=== PATIENT | male | born 1975 | race American Indian/Alaskan Native ===

== ENCOUNTER 2019-01-14 14:20 | Emergency (ER) | payer MEDICAID ==
--- NOTE | 2019-01-14 14:37 | Emergency Department Report ---
Blank Doc - Documentation Documentation: This is a 43-year-old male that presents with hearing voice. Patient stated has been out of his medications. Denies any SI/HI. This initial assessment/diagnostic orders/clinical plan/treatment(s) is/are subject to change based on patient's health status, clinical progression and re- assessment by fellow clinical providers in the ED. Further treatment and workup at subsequent clinical providers discretion. Patient/guardians urged not to elope from the ED as their condition may be serious if not clinically assessed and managed. Initial orders include: 1- Patient sent to MAIN ED for further evaluation and treatment 2- automatic fabric cutter was notified to have patient be brought back [facility]. 3- RN was notified to keep patient as close range and observation until room available 4- Labs 5- UA
[2019-01-14 15:01] LABS: Basophils # (Auto) 0.1 K/mm3 (0.0-0.1); Basophils % (Auto) 0.9 % (0.0-1.8); Eosinophils # (Auto) 0.1 K/mm3 (0.0-0.4); Eosinophils % (Auto) 1.4 % (0.0-4.3); Hematocrit 39.1 % (35.5-45.6); Hemoglobin 13.2 gm/dl (11.8-15.2); Lymphocytes # (Auto) 2.2 K/mm3 (1.2-5.4); Lymphocytes % (Auto) 28.6 % (13.4-35.0); Mean Corpuscular HGB Conc 34 % (32-34); Mean Corpuscular Volume 89 fl (84-94); Monocytes # (Auto) 0.6 K/mm3 (0.0-0.8); Monocytes % (Auto) 8.1 % (0.0-7.3); Platelet Count 349 K/mm3 (140-440); Red Cell Distribution Width 13.9 % (13.2-15.2)
[2019-01-14 15:19] LABS: BUN/Creatinine Ratio 14; Blood Urea Nitrogen 15 mg/dL (9-20); Calcium 9.1 mg/dL (8.4-10.2); Hemolysis Index 12
[2019-01-14 16:05] VITALS: BP 142/95
--- NOTE | 2019-01-14 16:24 | Emergency Department Report ---
HPI - General Chief Complaint: Psych Time Seen by Provider: 01/14/19 14:35 - HPI HPI: -[place] male presents to the emergency department for a mental health evaluation. The patient has a history of schizophrenia and admits that he has not been on any medication for the past few months. For the past month the patient has been dealing with auditory hallucinations. These voices are telling him to harm himself, that his mother is going to , that he is going to lose his job. He denies any desire to harm himself or any suicidal ideations. He denies any homicidal ideations. He previously was on Seroquel and Risperdal. He has a past medical history of hypertension. He is a tobacco smoker and admits to some marijuana use. ED Past Medical Hx - Past Medical History Previous Medical History?: Yes Hx Hypertension: Yes Hx Psychiatric Treatment: Yes - Surgical History Past Surgical History?: No - Social History Smoking Status: Current Every Day Smoker Substance Use Type: Alcohol, Marijuana - Medications Home Medications: Home Medications Medication Instructions Recorded Confirmed Last Taken Type RisperDAL 2 mg PO BID #20 01/14/19 Unknown Rx SEROquel 400 mg PO QHS #10 01/14/19 Unknown Rx ED Review of Systems ROS: Stated complaint: MH EVAL Other details as noted in HPI Comment: All other systems reviewed and negative Constitutional: denies: chills, fever Eyes: denies: eye pain, vision change ENT: denies: ear pain, throat pain Respiratory: denies: cough, shortness of breath Cardiovascular: denies: chest pain, palpitations Gastrointestinal: denies: nausea, vomiting Genitourinary: denies: dysuria, frequency Musculoskeletal: denies: back pain, arthralgia Neurological: denies: headache, weakness Psychiatric: auditory hallucinations. denies: homicidal thoughts Physical Exam - Physical Exam Vital Signs: Vital Signs 01/14/19 01/14/19 14:36 16:03 Temperature 97.3 F L 98.0 F Pulse Rate 71 70 Respiratory 20 20 Rate Blood Pressure 169/108 Blood Pressure 142/95 [Left] O2 Sat by Pulse 100 100 Oximetry Physical Exam: GENERAL: The patient is well-developed well-nourished. HEENT: Normocephalic. Atraumatic. Patient has moist mucous membranes. EYES: Extraocular motions are intact. NECK: Supple. Trachea is midline. CHEST/LUNGS: Clear to auscultation. There is no respiratory distress noted. HEART/CARDIOVASCULAR: Regular. There is no tachycardia. There is no obvious murmur. ABDOMEN: Abdomen is soft, nontender. Patient has normal bowel sounds. There is no abdominal distention. SKIN: Skin is warm and dry. NEURO: The patient is awake, alert, and oriented. The patient is cooperative. The patient has no focal neurologic deficits. The patient has normal speech. MUSCULOSKELETAL: There is no tenderness or deformity. There is no limitation range of motion. There is no evidence of acute injury. ED Course Vital Signs 01/14/19 01/14/19 14:36 16:03 Temperature 97.3 F L 98.0 F Pulse Rate 71 70 Respiratory 20 20 Rate Blood Pressure 169/108 Blood Pressure 142/95 [Left] O2 Sat by Pulse 100 100 Oximetry ED Medical Decision Making - Lab Data Result diagrams: 01/14/19 14:46 01/14/19 14:46 - Medical Decision Making This patient presents to the emergency department with admission of medication noncompliance for his schizophrenia and he also has been having some auditory hallucinations. While the hallucinations do tell him to harm himself, the patient says that he has no intent to act upon this and says that he has no suicidal ideations or desire to harm himself. He also denies any homicidal ideations. During his examination the patient has been awake, alert, calm and cooperative and appropriate. He was seen by the psychiatric government relations manager, Didi, who agrees that the patient does not appear to be a danger to himself or others and does not appear to meet criteria to be made a 1013 at this time. He will be given multiple outpatient referrals for psychiatric help. I am starting him on a ten-day course of his psychiatric medications, Seroquel and Risperdal. Metabolic side effects were discussed with the patient and he understands and agrees to the plan. I am aware of the patient's urine drug screen positive for both marijuana and cocaine and the patient understands that he should avoid any further illicit drug use. He will return to the ER with any worsening of his symptoms, thoughts of harming himself or others, or with any acute distress. - Differential Diagnosis schizophrenia, bipolar disorder, schizoaffective, substance abuse Critical Care Time: No Critical care attestation.: If time is entered above; I have spent that time in minutes in the direct care of this critically ill patient, excluding procedure time. ED Disposition Clinical Impression: Noncompliance with medication regimen, Auditory hallucinations Schizophrenia Qualifiers: Schizophrenia type: unspecified Qualified Code(s): F20.9 - Schizophrenia, unspecified Disposition: DC-01 TO HOME OR SELFCARE Is pt being admited?: No Condition: Stable Instructions: Schizophrenia (ED) Additional Instructions: Please follow up with the [facility] or any of the other outpatient referrals that she will given by the psychiatric assessment team. Start taking the psychiatric medications prescribed/refilled. Return to the emergency Department with any worsening of your symptoms, thoughts of harming yourself or others, or with any acute distress. Prescriptions: SEROquel 400 mg PO QHS #10 RisperDAL 2 mg PO BID #20 Referrals: [facility] [Outside] - [facility] [Outside] - [facility] Time of Disposition: 16:53
[2019-01-14 16:56] LABS: Bilirubin,Urine NEG (Negative); Blood,Urine NEG (Negative); Color,Urine Yellow (Yellow); Protein,Urine <15 mg/dL mg/dL (Negative); Urobilinogen,Urine < 2.0 mg/dL (<2.0); WBC,Urine < 1.0 /HPF (0.0-6.0)
[2019-01-14 17:03] LABS: Amphetamine Screen,Urine PRESUMPTIVE NEGATIVE; Benzodiazepines Screen,Urine PRESUMPTIVE NEGATIVE; Methadone Screen,Urine PRESUMPTIVE NEGATIVE; Opiate Screen,Urine PRESUMPTIVE NEGATIVE
[2019-01-14 17:34] LABS: Cannabinoid Screen,Urine PRESUMPTIVE POSITIVE; Cocaine Screen,Urine PRESUMPTIVE POSITIVE
== END 2019-01-14 17:47 | disposition home or self-care (01) ==
LOC: ED 14:20
DX: F20.9 Schizophrenia, unspecified (principal); Z91.14 Patient's other noncompliance with medication regimen; I10 Essential (primary) hypertension; F17.200 Nicotine dependence, unspecified, uncomplicated; F12.10 Cannabis abuse, uncomplicated
CPT/HCPCS: 36415; 80048; 80307; 81001; 85025; 99284; G0480; 80320

== ENCOUNTER 2020-09-03 15:13 | Inpatient (IN) | payer MEDICAID ==
[2020-09-03 16:02] LABS: Hematocrit 26.8 % (35.5-45.6); Hemoglobin 9.2 gm/dl (11.8-15.2); Mean Corpuscular HGB Conc 34 % (32-34); Mean Corpuscular Volume 88 fl (84-94); Platelet Count 993 K/mm3 (140-440); Red Blood Count 3.06 M/mm3 (3.65-5.03); Red Cell Distribution Width 13.7 % (13.2-15.2)
--- NOTE | 2020-09-03 16:13 | XRay Report ---
CHEST 2 VIEWS INDICATION / CLINICAL INFORMATION: Chest Pain. COMPARISON: None available. FINDINGS: SUPPORT DEVICES: None. HEART / MEDIASTINUM: No significant abnormality. LUNGS / PLEURA: No significant pulmonary or pleural abnormality. No pneumothorax. ADDITIONAL FINDINGS: No significant additional findings. IMPRESSION: 1. No acute findings. Signer Name: Lee Pepper MD Signed: 09/03/2020 4:09 PM Workstation Name: [id number]
[2020-09-03 16:16] LABS: BUN/Creatinine Ratio 9; Blood Urea Nitrogen 9 mg/dL (9-20); Calcium 9.5 mg/dL (8.4-10.2); Hemolysis Index 1
[2020-09-03 17:32] LABS: Band Neutrophils # (Manual) 0.5 K/mm3; Basophils % (Manual) 0 % (0.0-1.8); Eosinophils % (Manual) 0 % (0.0-4.3); Total Cells Counted 100
[2020-09-03 17:34] LABS: Platelet Estimate Consistent w Auto; RBC Morphology Normal
--- NOTE | 2020-09-03 19:16 | Emergency Department Report ---
ED Chest Pain HPI - General Chief Complaint: Dyspnea/Respdistress Stated Complaint: CHEST PAIN/DIFFICULTY BREATHING PUI?: No Time Seen by Provider: 09/03/20 18:45 Source: patient Mode of arrival: Ambulatory Limitations: No Limitations - History of Present Illness Initial Comments: Chief complaint: Chest pain, muscle spasms HPI: This is a 45-year-old male with history of hypertension, tobacco dependence who presents with 1 week of left-sided chest pain. He was evaluated per EMS 1 week ago. He was diagnosed with likely chest wall muscle spasms. Since that time he has had severe shortness of breath especially with exertion. He has had pain with inhalation and cough. Sharp left-sided pain without radiation. Cough is productive with whitish sputum. He denies fever. Denies chills. 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 Pain is moderately severe. Sharp in nature. Pain is intermittent. MD Complaint: chest pain -: Gradual, week(s) (1) Onset: during rest Pain Location: left chest Pain Radiation: none Severity: moderate Severity scale (0 -10): 8 Quality: sharp Consistency: intermittent Improves With: rest Worsens With: inspiration, other (Cough) Other Symptoms: cough Treatments Prior to Arrival: none - Related Data Previous Rx's Medication Instructions Recorded Last Taken Type RisperDAL 2 mg PO BID #20 01/14/19 Unknown Rx SEROquel 400 mg PO QHS #10 01/14/19 Unknown Rx Allergies Allergy/AdvReac Type Severity Reaction Status Date / Time No Known Allergies Allergy Unverified 01/14/19 14:28 Heart Score - HEART Score History: Slightly suspicious EKG: Normal Age: 45-65 Risk factors: 1-2 risk factors Troponin: < normal limit HEART Score: 2 ED Review of Systems ROS: Stated complaint: CHEST PAIN/DIFFICULTY BREATHING Other details as noted in HPI Comment: All other systems reviewed and negative Constitutional: denies: chills, fever, malaise Respiratory: cough, shortness of breath. denies: wheezing Cardiovascular: chest pain Gastrointestinal: denies: abdominal pain, nausea, vomiting ED Past Medical Hx - Past Medical History Previous Medical History?: Yes Hx Hypertension: Yes Hx Psychiatric Treatment: Yes - Social History Smoking Status: Current Every Day Smoker - Medications Home Medications: Home Medications Medication Instructions Recorded Confirmed Last Taken Type RisperDAL 2 mg PO BID #20 01/14/19 Unknown Rx SEROquel 400 mg PO QHS #10 01/14/19 Unknown Rx ED Physical Exam - General Limitations: No Limitations General appearance: alert, in no apparent distress - Head Head exam: Present: atraumatic, normocephalic - Eye Eye exam: Present: normal appearance - ENT ENT exam: Present: mucous membranes moist - Neck Neck exam: Present: normal inspection, full ROM - Respiratory Respiratory exam: Present: normal lung sounds bilaterally. Absent: respiratory distress, wheezes, rales, rhonchi - Cardiovascular Cardiovascular Exam: Present: normal rhythm, tachycardia, normal heart sounds. Absent: systolic murmur, diastolic murmur, rubs, gallop - GI/Abdominal GI/Abdominal exam: Present: soft, normal bowel sounds. Absent: distended, tenderness, guarding, rebound - Rectal Rectal exam: Present: deferred - Extremities Exam Extremities exam: Present: normal inspection - Neurological Exam Neurological exam: Present: alert, oriented X3 - Psychiatric Psychiatric exam: Present: normal affect, normal mood - Skin Skin exam: Present: warm, dry, intact, normal color. Absent: rash ED Course Vital Signs 09/03/20 15:20 Temperature 98.0 F Pulse Rate 114 H Respiratory 20 Rate Blood Pressure 115/71 O2 Sat by Pulse 99 Oximetry ED Medical Decision Making - Lab Data Result diagrams: 09/03/20 15:40 09/03/20 15:40 - EKG Data -: EKG Interpreted by [place] EKG shows normal: sinus rhythm, axis, intervals, QRS complexes, ST-T waves Rate: normal - EKG Data Interpretation: normal EKG - Radiology Data Radiology results: report reviewed Chest 2 views: No acute findings according to radiology impression CT angio chest INDICATION / CLINICAL INFORMATION: Pleuritic chest pain, tachycardia. TECHNIQUE: Axial CT images were obtained through the chest after injection of IV contrast. 3 plane MIP and/or 3D reconstructions were produced. All CT scans at this location are performed using CT dose reduction for ALARA by means of automated exposure control. COMPARISON: X-ray dated same day FINDINGS: PULMONARY ARTERIES: No pulmonary emboli. HEART: No significant abnormality. MEDIASTINUM / ADDY: No significant abnormality. LUNGS: There is a 7.2 x 7.8 x 12.8 cm left lower posterior loculated effusion. Small quantity of pleural fluid which is not loculated is present as well. The loculated effusion is resulting in compressive atelectasis in left lower lobe. No pneumothorax. ADDITIONAL FINDINGS: None. UPPER ABDOMEN: No acute findings. SKELETAL STRUCTURES: No significant osseous abnormality. IMPRESSION: 1. No CT evidence for pulmonary embolism. 2. Moderate to large left loculated effusion of uncertain etiology resulting in compressive atelectasis. - Medical Decision Making Moderate size pleural effusion, left sided seen on CT angiogram. CT scan obtained to rule out pulmonary embolism and for further diagnosis. Pleural effusion likely infectious in etiology considering leukocytosis and productive cough. Broad-spectrum antibiotics initiated in emergency department. Patient is admitted to the hospital service in stable condition. Patient will benefit from diagnostic and therapeutic thoracentesis. Critical care attestation.: If time is entered above; I have spent that time in minutes in the direct care of this critically ill patient, excluding procedure time. ED Disposition Clinical Impression: Pleural effusion Disposition: DC09 OP ADMIT IP TO THIS HOSP Is pt being admited?: Yes Does the pt Need Aspirin: No Condition: Stable
--- NOTE | 2020-09-03 20:01 | Cat Scan Report ---
. CT angio chest INDICATION / CLINICAL INFORMATION: Pleuritic chest pain, tachycardia. TECHNIQUE: Axial CT images were obtained through the chest after injection of IV contrast. 3 plane MIP and/or 3D reconstructions were produced. All CT scans at this location are performed using CT dose reduction f or ALARA by means of automated exposure control. COMPARISON: X-ray dated same day FINDINGS: PULMONARY ARTERIES: No pulmonary emboli. HEART: No significant abnormality. MEDIASTINUM / ADDY: No significant abnormality. LUNGS: There is a 7.2 x 7.8 x 12.8 cm left lower posterior loculated effusion. Small quantity of pleu ral fluid which is not loculated is present as well. The loculated effusion is resulting in compressi ve atelectasis in left lower lobe. No pneumothorax. ADDITIONAL FINDINGS: None. UPPER ABDOMEN: No acute findings. SKELETAL STRUCTURES: No significant osseous abnormality. IMPRESSION: 1. No CT evidence for pulmonary embolism. 2. Moderate to large left loculated effusion of uncertain etiology resulting in compressive atelectas is. Signer Name: Carlos Mendez MD Signed: 09/03/2020 7:57 PM Workstation Name: [id number]
[2020-09-03] MEDS ORDERED: VANCOMYCIN PHARMACY TO DOSE IV SCH (22:00)
[2020-09-03] MEDS ORDERED: VANCOMYCIN 1,500 MG in SODIUM CHLORIDE 0.9% 500 ML 500 ML IV ONE (22:00)
[2020-09-03] MEDS ORDERED: MAGNESIUM HYDROXIDE (MOM) ORAL LIQD UDC PO PRN (22:04)
[2020-09-03] MEDS ORDERED: ACETAMINOPHEN 325 MG TAB PO PRN (22:04)
[2020-09-03] MEDS ORDERED: ONDANSETRON 4 MG/2 ML INJ IV PRN (22:04)
--- NOTE | 2020-09-03 22:12 | History and Physical Report ---
History of Present Illness Date of examination: 09/03/20 Date of admission: 09/03/20 21:24 Chief complaint: Chest Pain. Cough Shortness of breath History of present illness: 45-year-old -[place] male with known history of hypertension and history of tobacco abuse presenting to the emergency room today complaining of left- sided chest pain. Chest pain has been ongoing for about 1 week. States he was diagnosed with chest wall muscle spasm about a week ago which has not improved. He has had shortness of breath which is worse on exertion. He has also had some cough which is productive of some whitish sputum. Chest pain has been intermittent, occasionally pleuritic and sharp. Patient denies any fever or chills, no nausea or vomiting, no headache or dizziness, no hematuria or dysuria. He denies any sick contacts and no recent travel, denies any contact with anyone with COVID-19. 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 Indicates he has been losing appetite and has lost some weight. He denies any night sweats. Work-up in the emergency room today including CT scan of the chest reveals: Moderate to large left loculated effusion of uncertain etiology resulting in compressive atelectasis. Labs reveals leukocytosis of about 24. Patient has been admitted for pleural effusion with an underlying possible infectious process. He has also been started on empiric IV antibiotics. Past History Past Medical History: hypertension Past Surgical History: No surgical history Social history: smoking (Current daily smoker) Family history: no significant family history Medications and Allergies Allergies Allergy/AdvReac Type Severity Reaction Status Date / Time No Known Allergies Allergy Unverified 01/14/19 14:28 Home Medications Medication Instructions Recorded Confirmed Last Taken Type RisperDAL 2 mg PO BID #20 01/14/19 09/03/20 Unknown Rx SEROquel 400 mg PO QHS #10 01/14/19 09/03/20 Unknown Rx Active Meds: Active Medications Acetaminophen (Tylenol) 650 mg PO Q4H PRN PRN Reason: Pain MILD(1-3)/Fever >100.5/RODARTE Vancomycin HCl 1,500 mg/ (Sodium Chloride) 530 mls @ 333 mls/hr IV ONCE ONE; Protocol Stop: 09/03/20 23:35 Cefepime HCl (Cefepime/Ns 2 Gm/100 Ml) 2 gm in 100 mls @ 200 mls/hr IV Q8HR [facility]; Protocol Vancomycin HCl (Vancomycin/Ns 1 Gm/250 Ml) 1 gm in 250 mls @ 250 mls/hr IV Q12HR CANDI Magnesium Hydroxide (Milk Of Magnesia) 30 ml PO Q4H PRN PRN Reason: Constipation Morphine Sulfate (Morphine) 2 mg IV Q4H PRN PRN Reason: Pain, Moderate (4-6) Ondansetron HCl (Zofran) 4 mg IV Q8H PRN PRN Reason: Nausea And Vomiting Sodium Chloride (Sodium Chloride Flush Syringe 10 Ml) 10 ml IV BID CANDI Sodium Chloride (Sodium Chloride Flush Syringe 10 Ml) 10 ml IV PRN PRN PRN Reason: LINE FLUSH Review of Systems Constitutional: fever, chills, weakness Ears, nose, mouth and throat: no nasal congestion, no sore throat Cardiovascular: chest pain, no palpitations Respiratory: cough, shortness of breath, dyspnea on exertion Gastrointestinal: no abdominal pain, no nausea, no vomiting, no diarrhea Genitourinary Male: no dysuria, no hematuria, no nocturia Musculoskeletal: no neck pain, no low back pain Integumentary: no rash, no pruritis Neurological: no headaches, no confusion Psychiatric: no anxiety, no depression Exam - Constitutional Vitals: Temp Pulse Resp BP Pulse Ox 98.0 F 114 H 20 115/71 99 09/03/20 15:20 09/03/20 15:20 09/03/20 15:20 09/03/20 15:20 09/03/20 15:20 General appearance: Present: no acute distress, well-nourished - EENT Eyes: Present: PERRL, EOM intact. Absent: scleral icterus ENT: hearing intact, clear oral mucosa, dentition normal - Neck Neck: Present: supple, normal ROM - Respiratory Respiratory effort: normal Respiratory: left: diminished - Cardiovascular Rhythm: regular Heart Sounds: Present: S1 & S2. Absent: gallop, systolic murmur, diastolic murmur, rub - Extremities Extremities: no ischemia, pulses intact, pulses symmetrical, No edema, Full ROM Peripheral Pulses: within normal limits - Abdominal General gastrointestinal: Present: soft, non-tender, non-distended, normal bowel sounds. Absent: mass - Integumentary Integumentary: Present: clear, warm, dry - Musculoskeletal Musculoskeletal: strength equal bilaterally - Psychiatric Psychiatric: appropriate mood/affect, intact judgment & insight, memory intact, cooperative - Neurologic Neurologic: CNII-XII intact, no focal deficits, moves all extremities HEART Score - HEART Score EKG: Normal Age: 45-65 Risk factors: 1-2 risk factors Troponin: Troponin T < 0.010 ng/mL (0.00-0.029) 09/03/20 18:41 Troponin: < normal limit Results - Labs CBC & Chem 7: 09/03/20 15:40 09/03/20 15:40 Labs: Abnormal lab results 09/03/20 09/03/20 Range/Units 15:40 15:40 WBC 24.7 H (4.5-11.0) K/mm3 RBC 3.06 L (3.65-5.03) M/mm3 Hgb 9.2 L (11.8-15.2) gm/dl Hct 26.8 L (35.5-45.6) % Plt Count 993 H (140-440) K/mm3 Seg Neuts % (Manual) 83.0 H (40.0-70.0) % Lymphocytes % (Manual) 6.0 L (13.4-35.0) % Monocytes % (Manual) 9.0 H (0.0-7.3) % Seg Neutrophils # Man 20.5 H (1.8-7.7) K/mm3 Monocytes # (Manual) 2.2 H (0.0-0.8) K/mm3 Sodium 130 L (137-145) mmol/L Chloride 96.1 L (98-107) mmol/L Carbon Dioxide 18 L (22-30) mmol/L Glucose 108 H (75-100) mg/dL Assessment and Plan - Patient Problems (1) Pleural effusion Current Visit: Yes Status: Acute Plan to address problem: Etiology is unclear. We will place consult to pulmonology and interventional radiology for evaluation and possible thoracentesis. Is unclear whether patient has an underlying infectious process versus mal ignancy. He has been started on empiric IV antibiotics. (2) DVT prophylaxis Current Visit: Yes Status: Acute Plan to address problem: Patient placed on sequential compression device. We will hold anticoagulation in view of possible surgical intervention. (3) Full code status Current Visit: Yes Status: Acute
[2020-09-03] MEDS ORDERED: CEFEPIME/NS 2 GM/100 ML 2 GM/100 ML BAG IV ONE (22:25)
[2020-09-03] MEDS: CEFEPIME/NS 2 GM/100 ML 2 GM/100 ML BAG IV SCH (22:27)
[2020-09-03] MEDS ORDERED: oxyCODONE /ACETAMINOPHEN 5-325MG TAB PO ONE (22:43)
[2020-09-03] MEDS ORDERED: oxyCODONE /ACETAMINOPHEN 5-325MG TAB ONE (22:44)
[2020-09-04] MEDS: CEFEPIME/NS 2 GM/100 ML 2 GM/100 ML BAG IV SCH ×3 (06:00→21:11)
[2020-09-04 06:31] LABS: Basophils # (Auto) 0.1 K/mm3 (0.0-0.1); Basophils % (Auto) 0.7 % (0.0-1.8); Eosinophils # (Auto) 0.1 K/mm3 (0.0-0.4); Eosinophils % (Auto) 0.7 % (0.0-4.3); Hematocrit 27.3 % (35.5-45.6); Hemoglobin 8.8 gm/dl (11.8-15.2); Lymphocytes # (Auto) 1.4 K/mm3 (1.2-5.4); Lymphocytes % (Auto) 7.4 % (13.4-35.0); Mean Corpuscular HGB Conc 32 % (32-34); Mean Corpuscular Volume 86 fl (84-94); Monocytes # (Auto) 1.6 K/mm3 (0.0-0.8); Monocytes % (Auto) 8.5 % (0.0-7.3); Platelet Count 982 K/mm3 (140-440); Red Blood Count 3.16 M/mm3 (3.65-5.03); Red Cell Distribution Width 13.8 % (13.2-15.2)
[2020-09-04 06:37] LABS: INR 1.27 (0.87-1.13)
[2020-09-04 06:50] LABS: BUN/Creatinine Ratio 11; Blood Urea Nitrogen 10 mg/dL (9-20); Calcium 9.5 mg/dL (8.4-10.2); Hemolysis Index 0
[2020-09-04] MEDS: VANCOMYCIN/NS 1 GM/250 ML 1 GM/250 ML BAG IV SCH ×2 (09:16→21:11)
--- NOTE | 2020-09-04 11:43 | Consultation ---
History of Present Illness Consult date: 09/04/20 Reason for consult: dyspnea, cough, chest pain History of present illness: History of present illness: 45-year-old -[place] male with known history of hypertension and history of tobacco abuse presenting to the emergency room yesterday complaining of left- sided chest pain. Chest pain has been ongoing for about 1 week. States he was diagnosed with chest wall muscle spasm about a week ago which has not improved. He has had shortness of breath which is worse on exertion. He has also had some cough which is productive of some whitish sputum. Chest pain has been intermittent, occasionally pleuritic and sharp. Patient denies any fever or chills, no nausea or vomiting, no headache or dizziness, no hematuria or dysuria. He denies any sick contacts and no recent travel, denies any contact with anyone with COVID-19. 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 Indicates he has been losing appetite and has lost some weight. He denies any night sweats. Work-up in the emergency room today including CT scan of the chest reveals: Moderate to large left loculated effusion of uncertain etiology resulting in compressive atelectasis. Labs reveals leukocytosis of about 24. Past History Past Medical History: hypertension Past Surgical History: No surgical history Social history: smoking (Current daily smoker) Family history: no significant family history Medications and Allergies Allergies Allergy/AdvReac Type Severity Reaction Status Date / Time No Known Allergies Allergy Unverified 01/14/19 14:28 Home Medications Medication Instructions Recorded Confirmed Last Taken Type RisperDAL 2 mg PO BID #20 01/14/19 09/03/20 Unknown Rx SEROquel 400 mg PO QHS #10 01/14/19 09/03/20 Unknown Rx Active Meds: Active Medications Acetaminophen (Tylenol) 650 mg PO Q4H PRN PRN Reason: Pain MILD(1-3)/Fever >100.5/RODARTE Cefepime HCl (Cefepime/Ns 2 Gm/100 Ml) 2 gm in 100 mls @ 200 mls/hr IV Q8HR CANDI; Protocol Last Admin: 09/04/20 06:00 Dose: 200 mls/hr Documented by: Vancomycin HCl (Vancomycin/Ns 1 Gm/250 Ml) 1 gm in 250 mls @ 250 mls/hr IV Q12HR CANDI Last Admin: 09/04/20 09:16 Dose: 250 mls/hr Documented by: Magnesium Hydroxide (Milk Of Magnesia) 30 ml PO Q4H PRN PRN Reason: Constipation Morphine Sulfate (Morphine) 2 mg IV Q4H PRN PRN Reason: Pain, Moderate (4-6) Ondansetron HCl (Zofran) 4 mg IV Q8H PRN PRN Reason: Nausea And Vomiting Sodium Chloride (Sodium Chloride Flush Syringe 10 Ml) 10 ml IV BID [facility] Last Admin: 09/04/20 09:16 Dose: 10 ml Documented by: Sodium Chloride (Sodium Chloride Flush Syringe 10 Ml) 10 ml IV PRN PRN PRN Reason: LINE FLUSH Review of Systems All systems: negative Constitutional: weight loss, anorexia Cardiovascular: chest pain Respiratory: cough, cough with sputum, shortness of breath, dyspnea on exertion, pain Physical Examination Vital signs: Vital Signs Temp Pulse Resp BP Pulse Ox 98.0 F 114 H 20 115/71 99 09/03/20 15:20 09/03/20 15:20 09/03/20 15:20 09/03/20 15:20 09/03/20 15:20 General appearance: no acute distress Eyes: non-icteric ENT: oropharynx moist, other (Dentition extremely poor) Neck: supple, no JVD Effort: normal Ascultation: Bilateral: clear Cardiovascular: regular rate and rhythm Gastrointestinal: normoactive bowel sounds, soft, non-tender Integumentary: normal Extremities: no cyanosis, no edema, pink and warm Musculoskeletal: no deformities Gait: other (Not examined) normal mental status, non-focal exam mood appropriate Results - Laboratory Findings CBC and BMP: 09/04/20 05:44 09/04/20 05:44 PT/INR, D-dimer PT 16.1 Sec. (12.2-14.9) H 09/04/20 05:44 INR 1.27 (0.87-1.13) H 09/04/20 05:44 Abnormal lab findings: Abnormal Labs 09/03/20 09/03/20 09/04/20 15:40 15:40 05:44 WBC 24.7 H 18.5 H RBC 3.06 L 3.16 L Hgb 9.2 L 8.8 L Hct 26.8 L 27.3 L Plt Count 993 H 982 H Lymph % (Auto) 7.4 L [place] % (Auto) 8.5 H [place] # (Auto) 1.6 H Seg Neutrophils % 82.7 H Seg Neuts % (Manual) 83.0 H Lymphocytes % (Manual) 6.0 L Monocytes % (Manual) 9.0 H Seg Neutrophils # 15.3 H Seg Neutrophils # Man 20.5 H Monocytes # (Manual) 2.2 H PT INR Sodium 130 L Chloride 96.1 L Carbon Dioxide 18 L Glucose 108 H 09/04/20 09/04/20 05:44 05:44 WBC RBC Hgb Hct Plt Count Lymph % (Auto) [place] % (Auto) [place] # (Auto) Seg Neutrophils % Seg Neuts % (Manual) Lymphocytes % (Manual) Monocytes % (Manual) Seg Neutrophils # Seg Neutrophils # Man Monocytes # (Manual) PT 16.1 H INR 1.27 H Sodium 136 L Chloride Carbon Dioxide Glucose 104 H - Diagnostic Findings CT scan - chest: image reviewed (Moderate size thick-walled loculated left pleural effusion medially) Assessment and Plan Impression: Moderate size thick-walled loculated left pleural effusion most likely infectious etiology. Possible aspiration Suspect pneumonia Weight loss, chest pain and cough secondary to above Recommendation: Continue with antibiotic therapy. Ultrasound guided thoracentesis tomorrow Given the thick-walled loculated effusion, patient may require decortication
[2020-09-04] MEDS: MORPHINE 2 MG/1 ML INJ IV PRN ×2 (13:24→21:08)
--- NOTE | 2020-09-04 17:46 | Progress Note ---
Assessment and Plan -- Pleural effusion Etiology is unclear. consulted to pulmonology and interventional radiology for evaluation and possible thoracentesis - planned for Saturday Is unclear whether patient has an underlying infectious process versus malignancy. He has been started on empiric IV antibiotics. --SIRS, cont abx for now, follow cx --Severe PCM, BMI only 15.8 Nutritional supplement, consult dietary --History of schizophrenia, continue home meds --Tobacco abuse, counseling done -- DVT prophylaxis Patient placed on sequential compression device. We will hold anticoagulation in view of possible surgical intervention. -- Full code status Brief History: 45 y/o male c/o left-sided intermittent, occasionally pleuritic and sharp chest pain ongoing for about 1 week. He has had shortness of breath which is worse on exertion. He has also had some cough which is productive of some whitish sputum. Work-up in the emergency room including CT scan of the chest reveals: Moderate to large left loculated effusion of uncertain etiology resulting in compressive atelectasis. Labs reveals leukocytosis of about 24. Patient has been admitted for pleural effusion with an underlying possible infectious process. He has a lso been started on empiric IV antibiotics. 09/04; planned for thoracentesis tomorrow, cont iv abx Subjective Date of service: 09/04/20 Interval history: Patient seen and examined. Medical records and medication list reviewed. No acute event overnight noted by the RN. Patient continued to have pleuritic chest pain but denies any difficulty breathing. Patient is tolerating diet. Discussed plan of care at bedside with patient. Objective - Exam Narrative Exam: GENERAL: Malnourished -British male lying on bed appeared to be in no discomfort. HEENT: Normocephalic. Atraumatic. No conjunctival congestion or icterus. Patient has moist mucous membranes. NECK: Supple. Trachea midline. CHEST/LUNGS: Diminished breath sound auscultated bilaterally, breathing nonlabored. HEART/CARDIOVASCULAR: Regular in rate and rhythm. S1 and S2 positive. ABDOMEN: Abdomen is soft, nontender. Patient has normal bowel sounds. SKIN: There is no rash. Warm and dry. NEURO: No focal motor deficit. Follows command. MUSCULOSKELETAL: No joint effusion or tenderness. Generalized muscle wasting EXTRIMITY: No edema, no cyanosis or clubbing. PSYCH: Cooperative. - Constitutional Vitals: Vital Signs - 12hr 09/04/20 12:58 Temperature 101.6 F H Pulse Rate 101 H Respiratory 18 Rate Blood Pressure 102/65 O2 Sat by Pulse 99 Oximetry - Labs CBC & Chem 7: 09/04/20 05:44 09/05/20 09:03 Labs: Abnormal lab results 09/03/20 09/04/20 09/04/20 Range/Units 15:40 05:44 05:44 WBC 24.7 H 18.5 H (4.5-11.0) K/mm3 RBC 3.06 L 3.16 L (3.65-5.03) M/mm3 Hgb 9.2 L 8.8 L (11.8-15.2) gm/dl Hct 26.8 L 27.3 L (35.5-45.6) % Plt Count 993 H 982 H (140-440) K/mm3 Lymph % (Auto) 7.4 L (13.4-35.0) % [place] % (Auto) 8.5 H (0.0-7.3) % [place] # (Auto) 1.6 H (0.0-0.8) K/mm3 Seg Neutrophils % 82.7 H (40.0-70.0) % Seg Neuts % (Manual) 83.0 H (40.0-70.0) % Lymphocytes % (Manual) 6.0 L (13.4-35.0) % Monocytes % (Manual) 9.0 H (0.0-7.3) % Seg Neutrophils # 15.3 H (1.8-7.7) K/mm3 Seg Neutrophils # Man 20.5 H (1.8-7.7) K/mm3 Monocytes # (Manual) 2.2 H (0.0-0.8) K/mm3 PT 16.1 H (12.2-14.9) Sec. INR 1.27 H (0.87-1.13) Sodium (137-145) mmol/L Glucose (75-100) mg/dL 09/04/20 Range/Units 05:44 WBC (4.5-11.0) K/mm3 RBC (3.65-5.03) M/mm3 Hgb (11.8-15.2) gm/dl Hct (35.5-45.6) % Plt Count (140-440) K/mm3 Lymph % (Auto) (13.4-35.0) % [place] % (Auto) (0.0-7.3) % [place] # (Auto) (0.0-0.8) K/mm3 Seg Neutrophils % (40.0-70.0) % Seg Neuts % (Manual) (40.0-70.0) % Lymphocytes % (Manual) (13.4-35.0) % Monocytes % (Manual) (0.0-7.3) % Seg Neutrophils # (1.8-7.7) K/mm3 Seg Neutrophils # Man (1.8-7.7) K/mm3 Monocytes # (Manual) (0.0-0.8) K/mm3 PT (12.2-14.9) Sec. INR (0.87-1.13) Sodium 136 L (137-145) mmol/L Glucose 104 H (75-100) mg/dL HEART Score - HEART Score EKG: Normal Age: 45-65 Risk factors: 1-2 risk factors Troponin: Troponin T < 0.010 ng/mL (0.00-0.029) 09/03/20 18:41 Troponin: < normal limit
[2020-09-05] MEDS: CEFEPIME/NS 2 GM/100 ML 2 GM/100 ML BAG IV SCH ×3 (07:14→21:19)
[2020-09-05 09:44] LABS: BUN/Creatinine Ratio 7; Blood Urea Nitrogen 6 mg/dL (9-20); Calcium 9.1 mg/dL (8.4-10.2); Hemolysis Index 1
[2020-09-05] MEDS: risperiDONE 1 MG TAB PO SCH ×2 (10:00→21:19)
[2020-09-05] MEDS ORDERED: RISPERDAL 2 MG PO SCH (10:00)
[2020-09-05] MEDS: VANCOMYCIN/NS 1 GM/250 ML 1 GM/250 ML BAG IV SCH ×2 (10:00→21:19)
--- NOTE | 2020-09-05 11:39 | Procedure Note ---
Date of procedure: 09/05/20 Pre-op diagnosis: left pl fluid collection Post-op diagnosis: same Procedure: US thoracentesis Findings: complex left pleural fluid Anesthesia: local Surgeon: MILKA IVY Estimated blood loss: none Pathology: list (120cc) Specimen disposition: to lab Condition: stable Disposition: floor
--- NOTE | 2020-09-05 11:52 | Ultrasound Report ---
Ultrasound-guided thoracentesis HISTORY: Pleural effusion Left. COMPARISON: CTA chest 09/03/2020 PROCEDURE: The risks (including but not limited to bleeding, infection, and pneumothorax) and benefi ts were explained to the patient and informed consent was obtained. A time out procedure was perform ed. Ultrasound was used to evaluate the left pleural effusion and locate the optimal site for needle entr y. Once the skin was marked, the procedure site was prepped and draped in the usual sterile fashion and lidocaine was used for local anesthesia. A skin brayan was made and a 6-Telugu thoracentesis nancy ter was placed. The patient was monitored closely throughout the procedure, and a total of 500 mL of thick complex white fluid was aspirated. Samples were sent to the lab for further evaluation per e primary clinicians orders. The patient tolerated the procedure well with no complications. A post-procedure chest x-ray was imm ediately ordered. IMPRESSION: Successful thoracentesis as above with a total of 500 mL of thick complex white fluid asp irated. Signer Name: Puma Rosen Jr, MD Signed: 09/05/2020 11:48 AM Workstation Name: [id number]
--- NOTE | 2020-09-05 12:02 | Progress Note ---
Assessment and Plan 45 y/o male with left sided loculated pleural effusion 1. Follow up studies 2. If organisms seen on Gram Stain, will need chest tube 3. Will continue to follow. Suggest obtaining repeat imaging to re-evaluate the space Subjective Date of service: 09/05/20 Interval history: No acute events. Had Thoracentesis today with 500 cc's of what is described as thick white complex fluid. Not sure if this is puss or not. Studies ordered and hopefully pending. Objective Vital Signs - 12hr 09/05/20 04:33 Temperature 99.7 F H Pulse Rate 99 H Respiratory 18 Rate Blood Pressure 120/66 O2 Sat by Pulse 99 Oximetry Constitutional: no acute distress Eyes: non-icteric ENT: oropharynx moist, other (Dentition extremely poor) Neck: supple, no JVD Effort: normal Ascultation: Bilateral: clear Cardiovascular: regular rate and rhythm Gastrointestinal: normoactive bowel sounds, soft, non-tender Integumentary: normal Extremities: no cyanosis, no edema, pink and warm Neurologic: normal mental status, non-focal exam Psychiatric: mood appropriate CBC and BMP: 09/04/20 05:44 09/05/20 09:03 ABG, PT/INR, D-dimer: PT/INR, D-dimer PT 16.1 Sec. (12.2-14.9) H 09/04/20 05:44 INR 1.27 (0.87-1.13) H 09/04/20 05:44 Abnormal lab findings: Abnormal Labs 09/03/20 09/03/20 09/04/20 15:40 15:40 05:44 WBC 24.7 H 18.5 H RBC 3.06 L 3.16 L Hgb 9.2 L 8.8 L Hct 26.8 L 27.3 L Plt Count 993 H 982 H Lymph % (Auto) 7.4 L [place] % (Auto) 8.5 H [place] # (Auto) 1.6 H Seg Neutrophils % 82.7 H Seg Neuts % (Manual) 83.0 H Lymphocytes % (Manual) 6.0 L Monocytes % (Manual) 9.0 H Seg Neutrophils # 15.3 H Seg Neutrophils # Man 20.5 H Monocytes # (Manual) 2.2 H PT INR Sodium 130 L Chloride 96.1 L Carbon Dioxide 18 L BUN Glucose 108 H 09/04/20 09/04/20 09/05/20 05:44 05:44 09:03 WBC RBC Hgb Hct Plt Count Lymph % (Auto) [place] % (Auto) [place] # (Auto) Seg Neutrophils % Seg Neuts % (Manual) Lymphocytes % (Manual) Monocytes % (Manual) Seg Neutrophils # Seg Neutrophils # Man Monocytes # (Manual) PT 16.1 H INR 1.27 H Sodium 136 L 134 L Chloride Carbon Dioxide BUN 6 L Glucose 104 H 135 H
[2020-09-05] MEDS: MORPHINE 2 MG/1 ML INJ IV PRN (12:48)
--- NOTE | 2020-09-05 14:09 | XRay Report ---
CHEST 1 VIEW INDICATION: left pleural effusion, recent thora. COMPARISON: 09/03/2020. FINDINGS: Support devices: None. Heart: Within normal limits. Lungs/Pleura: Near complete evacuation of the complex loculated left pleural collection since the pre vious exam. The lungs are generally clear otherwise. No pneumothorax is visualized. Additional findings: None. IMPRESSION: No evidence for pneumothorax. Signer Name: Puma Rosen Jr, MD Signed: 09/05/2020 2:04 PM Workstation Name: [id number]
[2020-09-05 14:37] LABS: Hematocrit 23.2 % (35.5-45.6); Hemoglobin 7.7 gm/dl (11.8-15.2); Mean Corpuscular HGB Conc 33 % (32-34); Mean Corpuscular Volume 86 fl (84-94); Platelet Count 803 K/mm3 (140-440); Red Blood Count 2.68 M/mm3 (3.65-5.03); Red Cell Distribution Width 13.5 % (13.2-15.2)
--- NOTE | 2020-09-05 14:45 | Progress Note ---
Assessment and Plan -- Pleural effusion Etiology is unclear. consulted to pulmonology and interventional radiology for evaluation s/p thoracentesis - will follow result Is unclear whether patient has an underlying infectious process versus malignancy. He has been started on empiric IV antibiotics. --SIRS, cont abx for now, follow cx --Severe PCM, BMI only 15.8 Nutritional supplement, consult dietary --History of schizophrenia, continue home meds --Tobacco abuse, counseling done -- DVT prophylaxis Patient placed on sequential compression device. We will hold anticoagulation in view of possible surgical intervention. -- Full code status Brief History: 45 y/o male c/o left-sided intermittent, occasionally pleuritic and sharp chest pain ongoing for about 1 week. He has had shortness of breath which is worse on exertion. He has also had some cough which is productive of some whitish sputum. Work-up in the emergency room including CT scan of the chest reveals: Moderate to large left loculated effusion of uncertain etiology resulting in compressive atelectasis. Labs reveals leukocytosis of about 24. Patient has been admitted for pleural effusion with an underlying possible infectious process. He has also been started on empiric IV antibiotics. 09/04; planned for thoracentesis tomorrow, cont iv abx 09/05: s/p thoracentesis today, will follow result, cont iv abx Subjective Date of service: 09/05/20 Interval history: Patient seen and examined. Medical records and medication list reviewed. No acute event overnight noted by the RN. Patient continued to have pleuritic chest pain with cough and deep breathing but denies any difficulty breathing. Patient is tolerating diet. Discussed plan of care at bedside with patient. Objective - Exam Narrative Exam: GENERAL: Malnourished -[place] male lying on bed appeared to be in no discomfort. HEENT: Normocephalic. Atraumatic. No conjunctival congestion or icterus. Patient has moist mucous membranes. NECK: Supple. Trachea midline. CHEST/LUNGS: Diminished breath sound auscultated bilaterally, breathing nonlabored. HEART/CARDIOVASCULAR: Regular in rate and rhythm. S1 and S2 positive. ABDOMEN: Abdomen is soft, nontender. Patient has normal bowel sounds. SKIN: There is no rash. Warm and dry. NEURO: No focal motor deficit. Follows command. MUSCULOSKELETAL: No joint effusion or tenderness. Generalized muscle wasting EXTRIMITY: No edema, no cyanosis or clubbing. PSYCH: Cooperative. - Constitutional Vitals: Vital Signs - 12hr 09/05/20 09/05/20 04:33 11:51 Temperature 99.7 F H 97.9 F Pulse Rate 99 H 105 H Respiratory 18 20 Rate Blood Pressure 120/66 100/68 O2 Sat by Pulse 99 100 Oximetry - Labs CBC & Chem 7: 09/05/20 13:45 09/07/20 04:39 Labs: Abnormal lab results 09/05/20 09/05/20 Range/Units 09:03 13:45 WBC 20.5 H (4.5-11.0) K/mm3 RBC 2.68 L (3.65-5.03) M/mm3 Hgb 7.7 L (11.8-15.2) gm/dl Hct 23.2 L (35.5-45.6) % Plt Count 803 H (140-440) K/mm3 Sodium 134 L (137-145) mmol/L BUN 6 L (9-20) mg/dL Glucose 135 H (75-100) mg/dL HEART Score - HEART Score EKG: Normal Age: 45-65 Risk factors: 1-2 risk factors Troponin: Troponin T < 0.010 ng/mL (0.00-0.029) 09/03/20 18:41 Troponin: < normal limit
[2020-09-05] MEDS: QUEtiapine 200 MG TAB PO SCH (21:19)
[2020-09-05] MEDS ORDERED: SEROQUEL 400 MG PO SCH (22:00)
[2020-09-06] MEDS: CEFEPIME/NS 2 GM/100 ML 2 GM/100 ML BAG IV SCH ×3 (05:27→21:25)
--- NOTE | 2020-09-06 08:24 | Progress Note ---
Assessment and Plan 45 y/o male with left sided loculated pleural effusion 1. Not sure of what happened with specimen. Rads note says fluid was sent but no results in [employer]. NO gram stain done either. 2. Likely will need repeat CT to see if fluid has reaccumulated or if drained dry. Was not very visible on CXR 3. Unfortunately, I can't make any other recs without fluid analysis. Subjective Date of service: 09/06/20 Interval history: No studies done on pleural fluid despite orders being placed. Objective Vital Signs - 12hr 09/05/20 09/05/20 09/06/20 21:29 22:00 05:03 Temperature 98.4 F 97.6 F Pulse Rate 93 H 98 H Respiratory 18 18 18 Rate Blood Pressure 105/69 107/69 O2 Sat by Pulse 100 96 Oximetry Constitutional: no acute distress Eyes: non-icteric ENT: oropharynx moist, other (Dentition extremely poor) Neck: supple, no JVD Effort: normal Ascultation: Bilateral: clear Cardiovascular: regular rate and rhythm Gastrointestinal: normoactive bowel sounds, soft, non-tender Integumentary: normal Extremities: no cyanosis, no edema, pink and warm Neurologic: normal mental status, non-focal exam Psychiatric: mood appropriate CBC and BMP: 09/05/20 13:45 09/05/20 09:03 ABG, PT/INR, D-dimer: PT/INR, D-dimer PT 16.1 Sec. (12.2-14.9) H 09/04/20 05:44 INR 1.27 (0.87-1.13) H 09/04/20 05:44 Abnormal lab findings: Abnormal Labs 09/03/20 09/03/20 09/04/20 15:40 15:40 05:44 WBC 24.7 H 18.5 H RBC 3.06 L 3.16 L Hgb 9.2 L 8.8 L Hct 26.8 L 27.3 L Plt Count 993 H 982 H Lymph % (Auto) 7.4 L [place] % (Auto) 8.5 H [place] # (Auto) 1.6 H Seg Neutrophils % 82.7 H Seg Neuts % (Manual) 83.0 H Lymphocytes % (Manual) 6.0 L Monocytes % (Manual) 9.0 H Seg Neutrophils # 15.3 H Seg Neutrophils # Man 20.5 H Monocytes # (Manual) 2.2 H PT INR Sodium 130 L Chloride 96.1 L Carbon Dioxide 18 L BUN Glucose 108 H 09/04/20 09/04/20 09/05/20 05:44 05:44 09:03 WBC RBC Hgb Hct Plt Count Lymph % (Auto) [place] % (Auto) [place] # (Auto) Seg Neutrophils % Seg Neuts % (Manual) Lymphocytes % (Manual) Monocytes % (Manual) Seg Neutrophils # Seg Neutrophils # Man Monocytes # (Manual) PT 16.1 H INR 1.27 H Sodium 136 L 134 L Chloride Carbon Dioxide BUN 6 L Glucose 104 H 135 H 09/05/20 13:45 WBC 20.5 H RBC 2.68 L Hgb 7.7 L Hct 23.2 L Plt Count 803 H Lymph % (Auto) [place] % (Auto) [place] # (Auto) Seg Neutrophils % Seg Neuts % (Manual) Lymphocytes % (Manual) Monocytes % (Manual) Seg Neutrophils # Seg Neutrophils # Man Monocytes # (Manual) PT INR Sodium Chloride Carbon Dioxide BUN Glucose
[2020-09-06] MEDS: risperiDONE 1 MG TAB PO SCH ×2 (09:05→21:26)
[2020-09-06] MEDS: VANCOMYCIN/NS 1 GM/250 ML 1 GM/250 ML BAG IV SCH ×2 (09:05→21:25)
--- NOTE | 2020-09-06 17:25 | Cat Scan Report ---
CT CHEST WITHOUT CONTRAST INDICATION / CLINICAL INFORMATION: pleural effusion. TECHNIQUE: Axial CT images were obtained through the chest without contrast. All CT scans at this location are p erformed using CT dose reduction for ALARA by means of automated exposure control. COMPARISON: Prior chest radiograph dated 09/05/2020. CT angiogram chest dated 09/03/2020 FINDINGS: HEART: No significant abnormality. THORACIC AORTA: No significant abnormality. MEDIASTINUM and ADDY: No significant abnormality. LUNGS: Persistent compressive atelectasis of the left lower lobe is similar. PLEURA: Minimal Interval decrease in size of the previously noted loculated left pleural fluid collec tion now measuring 6.4 x 7.4 cm (previously 10.1 x 7.2 cm). This collection now contains small amount s of internal air. No pneumothorax. ADDITIONAL FINDINGS: None. UPPER ABDOMEN: No significant abnormality. SKELETAL SYSTEM: No significant abnormality. IMPRESSION: 1. Minimal interval decrease in size of the previously noted loculated left pleural fluid collection which may represent a loculated pleural effusion versus empyema. Drainage is recommended. 2. Otherwise there is no significant interval change since prior exam. Signer Name: Pedrito Moreland MD Signed: 09/06/2020 5:24 PM Workstation Name: [id number]
--- NOTE | 2020-09-06 17:58 | Progress Note ---
Assessment and Plan -- Pleural effusion Etiology is unclear. consulted to pulmonology and interventional radiology for evaluation s/p thoracentesis - will follow result Is unclear whether patient has an underlying infectious process versus malignancy. He has been started on empiric IV antibiotics. --SIRS, cont abx for now, follow cx --Severe PCM, BMI only 15.8 Nutritional supplement, consult dietary --History of schizophrenia, continue home meds --Tobacco abuse, counseling done -- DVT prophylaxis Patient placed on sequential compression device. We will hold anticoagulation in view of possible surgical intervention. -- Full code status Brief History: 45 y/o male c/o left-sided intermittent, occasionally pleuritic and sharp chest pain ongoing for about 1 week. He has had shortness of breath which is worse on exertion. He has also had some cough which is productive of some whitish sputum. Work-up in the emergency room including CT scan of the chest reveals: Moderate to large left loculated effusion of uncertain etiology resulting in compressive atelectasis. Labs reveals leukocytosis of about 24. Patient has been admitted for pleural effusion with an underlying possible infectious process. He has also been started on empiric IV antibiotics. 09/04; planned for thoracentesis tomorrow, cont iv abx 09/05: s/p thoracentesis today, will follow result, cont iv abx 09/06: pending pleural fluid study, repeat CT chest. pulmonary following Subjective Date of service: 09/06/20 Interval history: Patient seen and examined. Medical records and medication list reviewed. No acute event overnight noted by the RN. Patient continued to have pleuritic chest pain with cough and deep breathing but denies any difficulty breathing. Patient is tolerating diet. Discussed plan of care at bedside with patient. Objective - Exam Narrative Exam: GENERAL: Malnourished -[place] male lying on bed appeared to be in no discomfort. HEENT: Normocephalic. Atraumatic. No conjunctival congestion or icterus. Patient has moist mucous membranes. NECK: Supple. Trachea midline. CHEST/LUNGS: Diminished breath sound auscultated bilaterally, breathing nonlabored. HEART/CARDIOVASCULAR: Regular in rate and rhythm. S1 and S2 positive. ABDOMEN: Abdomen is soft, nontender. Patient has normal bowel sounds. SKIN: There is no rash. Warm and dry. NEURO: No focal motor deficit. Follows command. MUSCULOSKELETAL: No joint effusion or tenderness. Generalized muscle wasting EXTRIMITY: No edema, no cyanosis or clubbing. PSYCH: Cooperative. - Constitutional Vitals: Vital Signs - 12hr 09/06/20 11:02 Temperature 98.1 F Pulse Rate 101 H Respiratory 18 Rate Blood Pressure 103/64 O2 Sat by Pulse 98 Oximetry - Labs CBC & Chem 7: 09/05/20 13:45 09/07/20 04:39 HEART Score - HEART Score EKG: Normal Age: 45-65 Risk factors: 1-2 risk factors Troponin: Troponin T < 0.010 ng/mL (0.00-0.029) 09/03/20 18:41 Troponin: < normal limit
[2020-09-06 18:17] LABS: Total Cells Counted 100 /mm3
[2020-09-06] MEDS: ENOXAPARIN 40 MG/0.4 ML INJ SUB-Q SCH (21:26)
[2020-09-06] MEDS: QUEtiapine 200 MG TAB PO SCH (21:26)
[2020-09-06] MEDS: MORPHINE 2 MG/1 ML INJ IV PRN (21:28)
[2020-09-07] MEDS: CEFEPIME/NS 2 GM/100 ML 2 GM/100 ML BAG IV SCH ×3 (05:21→21:25)
[2020-09-07 05:32] LABS: BUN/Creatinine Ratio 9; Blood Urea Nitrogen 8 mg/dL (9-20); Calcium 8.9 mg/dL (8.4-10.2); Hemolysis Index 9
[2020-09-07] MEDS: VANCOMYCIN/NS 1 GM/250 ML 1 GM/250 ML BAG IV SCH (10:16)
[2020-09-07] MEDS: risperiDONE 1 MG TAB PO SCH ×2 (10:17→21:22)
--- NOTE | 2020-09-07 12:04 | Progress Note ---
Assessment and Plan 45 y/o male with left sided loculated pleural effusion 1. Currently does not appear to be emphyema but is parapneumonic. Continue abx therapy 2. Suggest repeat CT to make sure space is completely drained 3. Needs repeat CBC, has not had one today, last WC was 20 4. If fluid is still present on repeat CT, would suggest IR guided chest tube placement. Subjective Date of service: 09/07/20 Interval history: Cell count back. Elevated White count on diff with limited RBC's but per Gram stain, no organisms seen. Glucose was not sent on fluid. For right now, does n ot appear to be empyema. Objective Vital Signs - 12hr 09/07/20 05:07 Temperature 99.0 F Pulse Rate 96 H Respiratory 16 Rate Blood Pressure 87/45 O2 Sat by Pulse 98 Oximetry Constitutional: no acute distress Eyes: non-icteric ENT: oropharynx moist, other (Dentition extremely poor) Neck: supple, no JVD Effort: normal Ascultation: Bilateral: clear Cardiovascular: regular rate and rhythm Gastrointestinal: normoactive bowel sounds, soft, non-tender Integumentary: normal Extremities: no cyanosis, no edema, pink and warm Neurologic: normal mental status, non-focal exam Psychiatric: mood appropriate CBC and BMP: 09/05/20 13:45 09/07/20 04:39 ABG, PT/INR, D-dimer: PT/INR, D-dimer PT 16.1 Sec. (12.2-14.9) H 09/04/20 05:44 INR 1.27 (0.87-1.13) H 09/04/20 05:44 Abnormal lab findings: Abnormal Labs 09/03/20 09/03/20 09/04/20 15:40 15:40 05:44 WBC 24.7 H 18.5 H RBC 3.06 L 3.16 L Hgb 9.2 L 8.8 L Hct 26.8 L 27.3 L Plt Count 993 H 982 H Lymph % (Auto) 7.4 L [place] % (Auto) 8.5 H [place] # (Auto) 1.6 H Seg Neutrophils % 82.7 H Seg Neuts % (Manual) 83.0 H Lymphocytes % (Manual) 6.0 L Monocytes % (Manual) 9.0 H Seg Neutrophils # 15.3 H Seg Neutrophils # Man 20.5 H Monocytes # (Manual) 2.2 H PT INR Sodium 130 L Chloride 96.1 L Carbon Dioxide 18 L BUN Glucose 108 H 09/04/20 09/04/20 09/05/20 05:44 05:44 09:03 WBC RBC Hgb Hct Plt Count Lymph % (Auto) [place] % (Auto) [place] # (Auto) Seg Neutrophils % Seg Neuts % (Manual) Lymphocytes % (Manual) Monocytes % (Manual) Seg Neutrophils # Seg Neutrophils # Man Monocytes # (Manual) PT 16.1 H INR 1.27 H Sodium 136 L 134 L Chloride Carbon Dioxide BUN 6 L Glucose 104 H 135 H 09/05/20 09/07/20 13:45 04:39 WBC 20.5 H RBC 2.68 L Hgb 7.7 L Hct 23.2 L Plt Count 803 H Lymph % (Auto) [place] % (Auto) [place] # (Auto) Seg Neutrophils % Seg Neuts % (Manual) Lymphocytes % (Manual) Monocytes % (Manual) Seg Neutrophils # Seg Neutrophils # Man Monocytes # (Manual) PT INR Sodium Chloride Carbon Dioxide BUN 8 L Glucose
[2020-09-07 13:28] LABS: Hematocrit 24.9 % (35.5-45.6); Hemoglobin 8.4 gm/dl (11.8-15.2); Mean Corpuscular HGB Conc 34 % (32-34); Mean Corpuscular Volume 86 fl (84-94); Platelet Count 747 K/mm3 (140-440); Red Blood Count 2.89 M/mm3 (3.65-5.03); Red Cell Distribution Width 13.7 % (13.2-15.2)
--- NOTE | 2020-09-07 15:22 | Progress Note ---
Assessment and Plan -- Pleural effusion Etiology is unclear. consulted to pulmonology and interventional radiology for evaluation s/p thoracentesis - will follow result Is unclear whether patient has an underlying infectious process versus malignancy. He has been started on empiric IV antibiotics. --SIRS, cont abx for now, follow cx --Severe PCM, BMI only 15.8 Nutritional supplement, consult dietary --History of schizophrenia, continue home meds --Tobacco abuse, counseling done -- DVT prophylaxis Patient placed on sequential compression device. We will hold anticoagulation in view of possible surgical intervention. -- Full code status Brief History: 45 y/o male c/o left-sided intermittent, occasionally pleuritic and sharp chest pain ongoing for about 1 week. He has had shortness of breath which is worse on exertion. He has also had some cough which is productive of some whitish sputum. Work-up in the emergency room including CT scan of the chest reveals: Moderate to large left loculated effusion of uncertain etiology resulting in compressive atelectasis. Labs reveals leukocytosis of about 24. Patient has been admitted for pleural effusion with an underlying possible infectious process. He has also been started on empiric IV antibiotics. 09/04; planned for thoracentesis tomorrow, cont iv abx 09/05: s/p thoracentesis today, will follow result, cont iv abx 09/06: pending pleural fluid study, repeat CT chest. pulmonary following 09/07: CT chest showed loculated pleural effusion, noted pulmonary recommendation. Will consult IR for chest tube placement, continue IV antibiotics Subjective Date of service: 09/07/20 Interval history: Patient seen and examined. Medical records and medication list reviewed. No acute event overnight noted by the RN. Patient continued to have pleuritic chest pain with cough and deep breathing but denies any difficulty breathing. Patient is tolerating diet. Discussed plan of care at bedside with patient. Objective - Exam Narrative Exam: GENERAL: Malnourished -[place] male lying on bed appeared to be in no di scomfort. HEENT: Normocephalic. Atraumatic. No conjunctival congestion or icterus. Patient has moist mucous membranes. NECK: Supple. Trachea midline. CHEST/LUNGS: Diminished breath sound auscultated bilaterally, breathing nonlabored. HEART/CARDIOVASCULAR: Regular in rate and rhythm. S1 and S2 positive. ABDOMEN: Abdomen is soft, nontender. Patient has normal bowel sounds. SKIN: There is no rash. Warm and dry. NEURO: No focal motor deficit. Follows command. MUSCULOSKELETAL: No joint effusion or tenderness. Generalized muscle wasting EXTRIMITY: No edema, no cyanosis or clubbing. PSYCH: Cooperative. - Constitutional Vitals: Vital Signs - 12hr 09/07/20 09/07/20 05:07 11:54 Temperature 99.0 F 98.8 F Pulse Rate 96 H 98 H Respiratory 16 20 Rate Blood Pressure 87/45 104/65 O2 Sat by Pulse 98 96 Oximetry - Labs CBC & Chem 7: 09/07/20 13:01 09/07/20 04:39 Labs: Abnormal lab results 09/07/20 09/07/20 Range/Units 04:39 13:01 WBC 19.2 H (4.5-11.0) K/mm3 RBC 2.89 L (3.65-5.03) M/mm3 Hgb 8.4 L (11.8-15.2) gm/dl Hct 24.9 L (35.5-45.6) % Plt Count 747 H (140-440) K/mm3 BUN 8 L (9-20) mg/dL HEART Score - HEART Score EKG: Normal Age: 45-65 Risk factors: 1-2 risk factors Troponin: Troponin T < 0.010 ng/mL (0.00-0.029) 09/03/20 18:41 Troponin: < normal limit
[2020-09-07] MEDS: MORPHINE 2 MG/1 ML INJ IV PRN (19:54)
[2020-09-07] MEDS: VANCOMYCIN 1,250 MG in SODIUM CHLORIDE 0.9% 250ML 250 ML IV SCH (20:20)
[2020-09-07] MEDS: ENOXAPARIN 40 MG/0.4 ML INJ SUB-Q SCH (21:22)
[2020-09-07] MEDS: QUEtiapine 200 MG TAB PO SCH (21:22)
[2020-09-08] MEDS: CEFEPIME/NS 2 GM/100 ML 2 GM/100 ML BAG IV SCH (06:46)
[2020-09-08 06:48] VITALS: BP 93/57
--- NOTE | 2020-09-08 09:42 | Consultation ---
History of Present Illness - Reason for Consult Consult date: 09/08/20 Left parapneumonic fluid collection - History of Present Illness Patient with a history of chest pain who on CT scan was noted to have a left parapneumonic fluid collection. Patient underwent aspiration however, there has not been significant resolution of the fluid collection. Currently is not complaining of any chest pain. No difficulty breathing. The patient does not have a history of pulmonary infection that he is aware of. Past History Past Medical History: hypertension Past Surgical History: No surgical history Social history: smoking (Current daily smoker) Family history: no significant family history Medications and Allergies Allergies Allergy/AdvReac Type Severity Reaction Status Date / Time No Known Allergies Allergy Unverified 01/14/19 14:28 Home Medications Medication Instructions Recorded Confirmed Last Taken Type RisperDAL 2 mg PO BID #20 01/14/19 09/03/20 Unknown Rx SEROquel 400 mg PO QHS #10 01/14/19 09/03/20 Unknown Rx Active Meds: Active Medications Acetaminophen (Tylenol) 650 mg PO Q4H PRN PRN Reason: Pain MILD(1-3)/Fever >100.5/RODARTE Last Admin: 09/04/20 13:23 Dose: 650 mg Documented by: Enoxaparin Sodium (Enoxaparin) 40 mg SUB-Q QDAY@2200 CANDI; Protocol Last Admin: 09/07/20 21:22 Dose: 40 mg Documented by: Cefepime HCl (Cefepime/Ns 2 Gm/100 Ml) 2 gm in 100 mls @ 200 mls/hr IV Q8HR [facility]; Protocol Last Admin: 09/08/20 06:46 Dose: 100 mls/hr Documented by: Vancomycin HCl 1,250 mg/ (Sodium Chloride) 275 mls @ 166.667 mls/hr IV Q12H [facility] Last Infusion: 09/07/20 22:39 Dose: Infused Documented by: Magnesium Hydroxide (Milk Of Magnesia) 30 ml PO Q4H PRN PRN Reason: Constipation Morphine Sulfate (Morphine) 2 mg IV Q4H PRN PRN Reason: Pain, Moderate (4-6) Last Admin: 09/07/20 19:54 Dose: 2 mg Documented by: Ondansetron HCl (Zofran) 4 mg IV Q8H PRN PRN Reason: Nausea And Vomiting Quetiapine Fumarate (Seroquel) 400 mg PO QHS [facility] Last Admin: 09/07/20 21:22 Dose: 400 mg Documented by: Risperidone (Risperdal) 2 mg PO BID [facility] Last Admin: 09/07/20 21:22 Dose: 2 mg Documented by: Sodium Chloride (Sodium Chloride Flush Syringe 10 Ml) 10 ml IV BID [facility] Last Admin: 09/07/20 21:24 Dose: 10 ml Documented by: Sodium Chloride (Sodium Chloride Flush Syringe 10 Ml) 10 ml IV PRN PRN PRN Reason: LINE FLUSH Review of Systems All systems: negative Exam - Constitutional Vitals: Temp Pulse Resp BP Pulse Ox 99.1 F 104 H 18 93/57 99 09/08/20 06:15 09/08/20 06:15 09/08/20 06:15 09/08/20 06:15 09/08/20 06:15 General appearance: Present: no acute distress - EENT Eyes: Present: EOM intact ENT: hearing intact - Neck Neck: Present: supple, normal ROM - Respiratory Respiratory effort: normal - Abdominal General gastrointestinal: Present: deferred Male genitourinary: Present: deferred - Rectal Rectal Exam: deferred - Psychiatric Psychiatric: cooperative Results - Labs CBC & Chem 7: 09/07/20 13:01 09/07/20 04:39 Labs: Abnormal lab results 09/07/20 Range/Units 13:01 WBC 19.2 H (4.5-11.0) K/mm3 RBC 2.89 L (3.65-5.03) M/mm3 Hgb 8.4 L (11.8-15.2) gm/dl Hct 24.9 L (35.5-45.6) % Plt Count 747 H (140-440) K/mm3 - Imaging and Cardiology CT scan - chest: image reviewed Assessment and Plan Patient will be brought down for CT-guided placement of drainage catheter. Given the thickness of the capsule, patient may ultimately require decortication if the fluid collection does not collapse with aspiration.
--- NOTE | 2020-09-08 10:23 | Event Note ---
Date: 09/08/20 Patient was scheduled to be brought down today for placement of a chest tube to drain the patient's parapneumonic fluid collection. In discussing this with the patient this morning, the patient was in agreement however after reflection, the patient has decided no longer wishes to proceed stating that he needs to get out of the hospital as he needs to get back to work as well as take care of his family. Discussed the risks and benefits of the procedure and the patient continues to refuse. We will canceled the drainage catheter placement.
[2020-09-08] MEDS: risperiDONE 1 MG TAB PO SCH (12:31)
[2020-09-08] MEDS: VANCOMYCIN 1,250 MG in SODIUM CHLORIDE 0.9% 250ML 250 ML IV SCH (12:31)
--- NOTE | 2020-09-08 13:02 | Event Note ---
Date: 09/08/20 Spoke with rads and primary team this am. Patient refusing thora/catheter placement and requests to leave AMA. Likely fluid will come back and patient will represent. Hopeful will allow us to help at that time. Abx therapy is being given at discharge as well.
--- NOTE | 2020-09-08 14:20 | Discharge Summary ---
Providers - Providers Date of Admission: 09/04/20 13:28 Date of discharge: 09/08/20 Attending physician: BETO POZO 09/03/20 22:04 Consult to Physician [CONS] Routine Comment: Consulting Provider: GIORGIO GODINEZ Physician Instructions: Reason For Exam: DYSPNEA- SECONDARY TO PLEURAL EFFUSION 09/07/20 15:20 Consult to Interventional Radiology [CONS] Routine Consulting Provider: JANINA BRIGHT Reason For Exam: PLEURAL EFFUSION - PLS. EVALUATE FOR chest tube Place consult to:: Dr. Dominguez Notified:: Dr. DOMINGUEZ Primary care physician: BELLMAKER Hospitalization Condition: Stable Hospital course: 45 y/o male c/o left-sided intermittent, occasionally pleuritic and sharp chest pain ongoing for about 1 week. He has had shortness of breath which is worse on exertion. He has also had some cough which is productive of some whitish sputum. Work-up in the emergency room including CT scan of the chest reveals: Moderate to large left loculated effusion of uncertain etiology resulting in compressive atelectasis. Labs reveals leukocytosis of about 24. Patient has been admitted for pleural effusion with an underlying possible infectious process. He has also been started on empiric IV antibiotics. 09/04; planned for thoracentesis tomorrow, cont iv abx 09/05: s/p thoracentesis today, will follow result, cont iv abx 09/06: pending pleural fluid study, repeat CT chest. pulmonary following 09/07: CT chest showed loculated pleural effusion, noted pulmonary recommendation. Will consult IR for chest tube placement, continue IV antibiotics 09/08: Discussed with patient in length, Patient refusing thora/catheter placement and requests to leave AMA. will give abx for 10 days on discharge. Discharge diagnosis: -- Pleural effusion Etiology is unclear. consulted to pulmonology and interventional radiology for evaluation s/p thoracentesis - will follow result Is unclear whether patient has an underlying infectious process versus malignancy. He has been started on empiric IV antibiotics. --SIRS, cont abx for now, follow cx --Severe PCM, BMI only 15.8 Nutritional supplement, consult dietary --History of schizophrenia, continue home meds --Tobacco abuse, counseling done -- DVT prophylaxis Patient placed on sequential compression device. We will hold anticoagulation in view of possible surgical intervention. -- Full code status Disposition: DC-07 LEFT AGAINST MED ADVICE Time spent for discharge: 34 minutes Core Measure Documentation - Palliative Care Palliative Care/ Comfort Measures: Not Applicable - Core Measures Any of the following diagnoses?: none Exam - Physical Exam Narrative exam: GENERAL: Malnourished -[place] male lying on bed appeared to be in no discomfort. HEENT: Normocephalic. Atraumatic. No conjunctival congestion or icterus. Patient has moist mucous membranes. NECK: Supple. Trachea midline. CHEST/LUNGS: Diminished breath sound auscultated bilaterally, breathing nonlabored. HEART/CARDIOVASCULAR: Regular in rate and rhythm. S1 and S2 positive. ABDOMEN: Abdomen is soft, nontender. Patient has normal bowel sounds. SKIN: There is no rash. Warm and dry. NEURO: No focal motor deficit. Follows command. MUSCULOSKELETAL: No joint effusion or tenderness. Generalized muscle wasting EXTRIMITY: No edema, no cyanosis or clubbing. PSYCH: Cooperative. - Constitutional Vitals: Temp Pulse Resp BP Pulse Ox 99.1 F 104 H 18 93/57 99 09/08/20 06:15 09/08/20 06:15 09/08/20 06:15 09/08/20 06:15 09/08/20 06:15 Plan Activity: advance as tolerated Weight Bearing Status: Non-Weight Bearing Diet: regular Follow up with: PRIMARY CARE, [Primary Care Provider] - 7 Days Prescriptions: Amoxicillin/Potassium Clav [Augmentin 875-125 Tablet] 1 each PO BID #20 tablet
[2020-09-12 08:32] LABS: LDH,Body Fluid 1695; Total Protein,Body Fluid < 3.0 (15.0-45.0)
== END 2020-09-08 15:30 | disposition left against medical advice (07) | DRG 186 ==
LOC: ED 15:13 → 3A 21:24 → OBSVTOIN 09-04 13:28
PROVIDERS: ADMIT Internal Medicine Geriatric Medicine; ATTEND Internal Medicine
PROC: 0W9B30Z Drainage of Left Pleural Cavity with Drainage Device, Percutaneous Approach (ICD-10-PCS; principal; 2020-09-05)
DX: J90 Pleural effusion, not elsewhere classified (principal); E43 Unspecified severe protein-calorie malnutrition; R65.10 Systemic inflammatory response syndrome (SIRS) of non-infectious origin without acute organ dysfunction; I10 Essential (primary) hypertension; F17.200 Nicotine dependence, unspecified, uncomplicated; Z68.1 Body mass index [BMI] 19.9 or less, adult; F20.9 Schizophrenia, unspecified; D72.829 Elevated white blood cell count, unspecified; B95.4 Other streptococcus as the cause of diseases classified elsewhere
CPT/HCPCS: 32555; 36415; 71045; 71046; 71250; 71275; 80048; 80202; 82947; 83605; 84160; 84484; 85007; 85025; 85027; 85610; 87040; 87116; 88112; 88305; 88312; 89051; 93005; 96365; 96375; G0378; J0692; J1650; J2270; J3370; J7040; J7050; Q9967